=== PATIENT | male | born 1970 | race Caucasian/White ===

== ENCOUNTER 2020-08-18 13:50 | Day surgery (SDCO) | payer OTHER ==
[~2020-08-18] VITALS: Ht 170 cm; Wt 65.0 kg
[~2020-08-18 13:50] MED LIST: ANUCORT-HC25 MG PR; KEFLEX250 MG PO
[2020-08-18] MEDS ORDERED: NEURONTIN300 MG PO (14:46)
[2020-08-18] MEDS ORDERED: CELEBREX **OUT100 MG PO (14:47)
== END 2020-08-19 15:02 | disposition home or self-care (01) ==
LOC: FMS 13:50
PROVIDERS: ADMIT Surgery
DX: Z12.11 Encounter for screening for malignant neoplasm of colon (principal); D12.8 Benign neoplasm of rectum; G80.9 Cerebral palsy, unspecified; G60.0 Hereditary motor and sensory neuropathy; E53.8 Deficiency of other specified B group vitamins; M50.30 Other cervical disc degeneration, unspecified cervical region; M19.90 Unspecified osteoarthritis, unspecified site; R29.6 Repeated falls; Z80.0 Family history of malignant neoplasm of digestive organs; Z20.822 Contact with and (suspected) exposure to COVID-19; Z86.16 Personal history of COVID-19; Z79.899 Other long term (current) drug therapy; Z82.49 Family history of ischemic heart disease and other diseases of the circulatory system
CPT/HCPCS: 72125; 73030; 73502; 88305; G0378; J2250; J2704; J7120; U0002

== ENCOUNTER 2021-02-19 21:05 | Emergency (ER) | payer OTHER ==
[~2021-02-19 21:05] MED LIST changes: +CELEBREX **OUT100 MG PO; +NEURONTIN300 MG PO
[2021-02-19] MEDS ORDERED: ROBAXIN750 MG PO (22:39)
== END 2021-02-19 22:50 | disposition home or self-care (01) ==
LOC: FER 21:05
DX: S16.1XXA Strain of muscle, fascia and tendon at neck level, initial encounter (principal); W19.XXXA Unspecified fall, initial encounter; Y92.512 Supermarket, store or market as the place of occurrence of the external cause
CPT/HCPCS: 72125